=== PATIENT | male | born 1965 | race Caucasian/White ===

== ENCOUNTER 2017-04-20 11:40 | Day surgery (SDC) | payer BC ==
[~2017-04-20 11:40] MED LIST: Lactated Ringers 1,000 ML IV SCH; Sodium Chloride 0.9% 10 ML Syringe FLUSH PRN
[2017-04-20] MEDS ORDERED: Midazolam 1 MG/ML 2 ML SDV IV ONE (12:45)
[2017-04-20] MEDS ORDERED: Labetalol 100 MG/20 ML MDV IV ONE (12:45)
[2017-04-20] MEDS ORDERED: Propofol 200 MG/20 ML SDV IV ONE (12:45)
--- NOTE | 2017-04-20 13:13 | PCM.OPNOTE ---
- General Post-Op/Procedure Note Date of Surgery/Procedure: 04/20/17 Operative Procedure(s): EGD with Bx and Dialtion Findings: Foof bulus in distal esoph; distal esoph stricture Pre Op Diagnosis: FB Esophagus Post-Op Diagnosis: Same Anesthesia Technique: MAC Primary Surgeon: Bassem Larose EBL in mLs: 1 Complications: None Condition: Good
[2017-04-20 13:56] VITALS: BP 128/71
--- NOTE | 2017-04-20 16:24 | OR ---
DATE OF OPERATION: 04/20/2017 SURGEON: Bassem Larose MD PREOPERATIVE DIAGNOSIS: Foreign body in the esophagus. POSTOPERATIVE DIAGNOSIS: Foreign body in the esophagus (food). PROCEDURE PERFORMED: Esophagogastroduodenoscopy with biopsies and balloon dilatation. ANESTHESIA: IV sedation. PROCEDURE IN DETAIL: The patient was brought to the procedure room, where he was placed on his left side and IV sedation administered. Oral bite block was placed. Upper endoscope was advanced into the esophagus under direct vision without difficulty. Vocal cords were viewed and were normal. Some saliva was suctioned. Scope was advanced and a food bolus was stuck in the distal esophagus at the EG junction. With some pressure, this was passed into the stomach. There is evidence of a distal esophageal stricture with inflammation. I did take two biopsies from this region. Since he has had chronic symptoms for many years, I used the balloon dilator and sequentially dilated this at 16 and 17 mm. There was some minimal oozing that occurred. Photographs were taken. The balloon was removed. The scope was advanced through the stomach and into the 3rd part of the duodenum. The rest of the exam was normal. Air was removed from the stomach and the scope withdrawn. The patient tolerated the procedure well and returned to recovery in stable condition. The patient will be started on omeprazole 20 mg daily. I will have him follow up with me in two weeks for followup and biopsy results. /[id number] LIZ/GARCIA
== END 2017-04-20 14:13 | disposition home or self-care (01) ==
LOC: FB.SDS 11:40
PROVIDERS: ATTEND Surgery
DX: K20.9 Esophagitis, unspecified (principal); K22.2 Esophageal obstruction; T18.128A Food in esophagus causing other injury, initial encounter; Z88.1 Allergy status to other antibiotic agents; Z88.8 Allergy status to other drugs, medicaments and biological substances; Z90.49 Acquired absence of other specified parts of digestive tract; Z79.899 Other long term (current) drug therapy; F17.210 Nicotine dependence, cigarettes, uncomplicated
CPT/HCPCS: 88305; J2250; J2704; J7120